=== PATIENT | female | born 1990 | race Caucasian/White ===

== ENCOUNTER 2020-02-28 08:23 | Emergency (ER) | payer MEDICAID ==
--- NOTE | 2020-02-28 08:49 | EDM.PDOC ---
ED HPI GENERAL MEDICAL PROBLEM - General Chief Complaint: Eye Problems Stated Complaint: L EYE INJURY Time Seen by Provider: 02/28/20 08:47 Source of Information: Reports: RN Notes Reviewed, Other (home health aide caregiver) - History of Present Illness INITIAL COMMENTS - FREE TEXT/NARRATIVE: 29 yr old female with onset of L eye irritation yesterday afternoon. That continues today. There has been a lot of tearing but no crusting or mattering. L upper eyelid is very slightly swollen. No fever, cough or other unusual sx. she is special needs, [place] patient. Patient does not verbalize. Information recieved is from [facility] caregiver. - Related Data Allergies Allergy/AdvReac Type Severity Reaction Status Date / Time Sulfa (Sulfonamide Allergy Rash Verified 02/28/20 08:51 Antibiotics) Home Meds: Home Meds Baclofen 30 mg PO BID 07/05/18 [History] Baclofen 40 mg PO BEDTIME 07/05/18 [History] Cholecalciferol (Vitamin D3) [Vitamin D3] 1,000 unit PO DAILY 07/05/18 [History] Cyanocobalamin (Vitamin B12) [Vitamin B12] 1,000 mcg PO DAILY 07/05/18 [History] Divalproex Sodium 1 tab PO 0800 07/05/18 [History] Divalproex Sodium 2 tab PO 1400 07/05/18 [History] Folic Acid 0.8 mg PO 1400 07/05/18 [History] Gabapentin [Neurontin] 2 tab PO BEDTIME 07/05/18 [History] Ibuprofen 200 mg PO ASDIRECTED PRN 07/05/18 [History] Juice Plus (Fruit) 4 tab PO QPM 07/05/18 [History] Juice Plus (Garden Blend) 4 tab PO DAILY 07/05/18 [History] L.acidoph,Paracasei, B.lactis [Probiotic] 1 each PO 1800 07/05/18 [History] Levofloxacin [Levaquin] 500 mg PO Q24H #9 tablet 07/05/18 [Rx] [place] Juice Plus 2 cap PO DAILY 07/05/18 [History] Power Pudding 1 tbsp PO DAILY 07/05/18 [History] l-Norgest/E.estradiol-E.estrad [Camrese 0.15-0.03-0.01 MG] 1 each PO ASDIRECTED 07/05/18 [History] polyethylene glycoL 3350 [MiraLAX] 3 tsp PO DAILY 07/05/18 [History] Past Medical History Other Gastrointestinal History: incontinence Genitourinary History: Reports: Urinary Incontinence, UTI, Recurrent 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 She has had previous rodding of her entire spine due to his severe scoliosis. Neurological History: Reports: Cerebral Palsy Social & Family History - Caffeine Use Caffeine Use: Reports: None - Living Situation & Occupation Living situation: Reports: Single Occupation: Disabled ED ROS GENERAL - Review of Systems Review Of Systems: Unable To Obtain Reason Not Obtained: pt is nonverbal ED EXAM GENERAL W FULL EYE - Physical Exam Exam: See Below Exam Limited By: Other (Pt nonverbal, not able to cooperate completely with exam) General Appearance: Mild Distress Eye Exam: Bilateral Eye: PERRL Eyelids: Bilateral: Other (L upper eyelid is very mildly swollen) Conjunctiva & Sclera: Left: Injected (mild) Cornea Exam: Bilateral: Other (no visible abrasion, no ulceration, no foreign body seen) Head: Atraumatic Neck: Supple Respiratory/Chest: No Respiratory Distress Neurological: Other (nonverbal, awake, nonpurposeful movement upper extrem. ) Skin Exam: Warm, Dry, Normal Color, No Rash Course - Vital Signs Last Recorded V/S: Last Vital Signs Temp 97.3 F 02/28/20 08:35 Pulse 111 H 02/28/20 08:35 Resp 16 02/28/20 08:35 BP 136/83 02/28/20 08:35 Pulse Ox 100 02/28/20 08:35 - Re-Assessments/Exams Free Text/Narrative Re-Assessment/Exam: 02/28/20 09:16 Pt has presumed abrasion L cornea, I a was able to get a decent look at her c ornea, no deep abrasion visible. She has scratched her eye before and has presumed abrasion with secondary inflamation. No ulceration or foreign body visible. Discharge instr. as documented. Departure - Departure Time of Disposition: 09:06 Disposition: Home, Self-Care 01 Condition: Fair Clinical Impression: Corneal abrasion Qualifiers: Encounter type: initial encounter Laterality: left Qualified Code(s): S05.02XA - Injury of conjunctiva and corneal abrasion without foreign body, left eye, initial encounter - Discharge Information Instructions: Corneal Abrasion Referrals: Rajiv Henderson MD [Primary Care Provider] - Forms: ED Department Discharge Additional Instructions: motrin as previously prescribed if needed for discomfort. Tylenol may given in between doses of motrin 500 mg up to 3 times daily for further pain relief if needed. Cipro Opthalmic, 2 drops L eye 3 times daily for 5 days Sepsis Event Note (ED) - Evaluation Sepsis Screening Result: No Definite Risk - Focused Exam Vital Signs: Vital Signs Temp Pulse Resp BP Pulse Ox 02/28/20 08:35 97.3 F 111 H 16 136/83 100
== END 2020-02-28 09:12 | disposition home or self-care (01) ==
LOC: JD.ED 08:23
DX: S05.02XA Injury of conjunctiva and corneal abrasion without foreign body, left eye, initial encounter (principal); Z88.2 Allergy status to sulfonamides; Z79.899 Other long term (current) drug therapy; Z87.442 Personal history of urinary calculi; X58.XXXA Exposure to other specified factors, initial encounter
CPT/HCPCS: 99282; 99283

== ENCOUNTER 2020-03-10 13:27 | Emergency (ER) | payer MEDICAID ==
[2020-03-10] MEDS ORDERED: Acetaminophen 325 MG Tab PO ONE (14:10)
--- NOTE | 2020-03-10 14:12 | EDM.PDOC ---
ED HPI GENERAL MEDICAL PROBLEM - General Chief Complaint: Respiratory Problem Stated Complaint: COUGH/EXPOSURE TO POSITIVE COVID PT Time Seen by Provider: 03/10/20 13:52 Source of Information: Reports: Provider History Limitations: Reports: Other (And is severely disabled from cerebral palsy and is nonverbal. She rises [id number] with her head neck on the bed.) - History of Present Illness INITIAL COMMENTS - FREE TEXT/NARRATIVE: 29-year-old female who has cerebral palsy and is nonverbal presents [place] the ED [place] [facility]. The care provider indicates that a [place] person [place] was diagnosed with COVID-19 positivity last evening through our hospital. Apparently 1 of the staff members there came down with COVID-19 as well recently. She spiked a temperature last evening and has gurgly respirations not really improved with albuterol treatments. Suctioning has been done. She did eat fairly well today. At the time of my exam she is febrile. She is a full code. Onset: Sudden Onset Date: 03/09/20 Duration: Hour(s):, Getting Worse Location: Reports: Chest (Chest congested with productive sounding cough) Quality: Reports: Other (Productive sounding cough congested cough on auscultation) Severity: Moderate Improves with: Reports: None Worsens with: Reports: None Context: Reports: Sick Contact (See history of present illness patient in the [place] that she lives in who was diagnosed with COVID-19 positivity yesterday and apparently 1 of the coworkers at the [place] [facility] was positive a week ago.). Denies: Activity, Exercise, Lifting Associated Symptoms: Reports: Cough, cough w sputum, Fever/Chills. Denies: Chest Pain, Diaphoresis, Headaches, Loss of Appetite, Malaise, Nausea/Vomiting, Rash, Seizure, Shortness of Breath, Syncope, Weakness Treatments PEDIATRICS PHYSICIAN: Reports: Acetaminophen, Other (see below) (Butyryl via nebulizer treatments.) - Related Data Allergies Allergy/AdvReac Type Severity Reaction Status Date / Time Sulfa (Sulfonamide Allergy Severe Rash Verified 03/10/20 14:04 Antibiotics) Home Meds: Home Meds Baclofen 30 mg PO BID 07/05/18 [History] Baclofen 40 mg PO BEDTIME 07/05/18 [History] Cholecalciferol (Vitamin D3) [Vitamin D3] 1,000 unit PO DAILY 07/05/18 [History] Cyanocobalamin (Vitamin B12) [Vitamin B12] 1,000 mcg PO DAILY 07/05/18 [History] Divalproex Sodium 1 tab PO 0800 07/05/18 [History] Divalproex Sodium 2 tab PO 1400 07/05/18 [History] Folic Acid 0.8 mg PO 1400 07/05/18 [History] Gabapentin [Neurontin] 2 tab PO BEDTIME 07/05/18 [History] Ibuprofen 200 mg PO ASDIRECTED PRN 07/05/18 [History] Juice Plus (Fruit) 4 tab PO QPM 07/05/18 [History] Juice Plus (Garden Blend) 4 tab PO DAILY 07/05/18 [History] L.acidoph,Paracasei, B.lactis [Probiotic] 1 each PO 1800 07/05/18 [History] Levofloxacin [Levaquin] 500 mg PO Q24H #9 tablet 07/05/18 [Rx] [place] Juice Plus 2 cap PO DAILY 07/05/18 [History] Power Pudding 1 tbsp PO DAILY 07/05/18 [History] l-Norgest/E.estradiol-E.estrad [Camrese 0.15-0.03-0.01 MG] 1 each PO ASDIRECTED 07/05/18 [History] polyethylene glycoL 3350 [MiraLAX] 3 tsp PO DAILY 07/05/18 [History] Past Medical History Cardiovascular History: Reports: Other (See Below) Other Cardiovascular History: heart surgery as toddler. Respiratory History: Reports: Pneumonia, Recurrent Other Gastrointestinal History: incontinence Genitourinary History: Reports: Urinary Incontinence, UTI, Recurrent Other LANDSCAPE ENGINEER History: correction control Other Musculoskeletal History: has cerebral palsy with contractures severe contractures of her hands wrists elbows knees and ankles. She has had previous rodding of her entire spine due to his severe scoliosis. Neurological History: Reports: Cerebral Palsy Social & Family History - Caffeine Use Caffeine Use: Reports: None - Living Situation & Occupation Living situation: Reports: Single Occupation: Disabled (Lives in [place] [facility] [place] setting with I believe 5 other people) ED ROS GENERAL - Review of Systems Review Of Systems: See Below Constitutional: Reports: Fever, Decreased Appetite. Denies: Weight Loss HEENT: Reports: No Symptoms Respiratory: Reports: Cough. Denies: Sputum, Hemoptysis (Adductive sounding cough) Cardiovascular: Reports: No Symptoms Endocrine: Reports: No Symptoms GI/Abdominal: Reports: Constipation (She is on a constipation treatment program every third day and had 3 good bowel movements with treatment yesterday.), Other (She eats normally but has to be fed of course.) : Reports: Incontinence Musculoskeletal: Reports: Other (Has cerebral palsy with flexion contractures at both wrists fingers elbows shoulders knees and ankles.) Skin: Reports: No Symptoms Neurological: Reports: Other (She is unable to walk and is nonverbal due to cerebral palsy. She is bedridden or in a wheelchair) Psychiatric: Reports: Hallucinations Hematologic/Lymphatic: Reports: No Symptoms Immunologic: Reports: No Symptoms ED EXAM, GENERAL - Physical Exam Exam: See Below Exam Limited By: No Limitations General Appearance: Alert, WD/WN, Moderate Distress, Other (Signs are not yet posted on her chart.) Eye Exam: Bilateral Eye: Normal Inspection Ears: Normal TMs Throat/Mouth: Normal Inspection, Normal Lips, Normal Teeth, Normal Oropharynx, Other (Tongue sounds moist) Head: Atraumatic, Normocephalic Neck: Normal Inspection, Supple, Non-Tender, Full Range of Motion. No: Lymphadenopathy (L), Lymphadenopathy (R) Respiratory/Chest: No Respiratory Distress, Lungs Clear, No Accessory Muscle Use, Respiratory Distress (Moderately tachypneic 24/min. O2 sats are 93% on room air.), Rhonchi (Throughout both anterior lung [place].). No: Wheezing Cardiovascular: Normal Peripheral Pulses, No Edema, No Gallop, No Murmur, No Rub, Tachycardia (Heart rate was 101 and sinus. BP 103/70) Peripheral Pulses: 2+: Posterior Tibial (L), Posterior Tibial (R), Dorsalis Pedis (L), Dorsalis Pedis (R), 3+: Carotid (L), Carotid (R) GI/Abdominal: Normal Bowel Sounds, Soft, No Organomegaly, Distended (Diffusely hyperactive bowel sounds. [place] distended tympanitic to percussion compel with aerophagia.), Abnormal Bowel Sounds Extremities: Normal Range of Motion, Non-Tender, No Pedal Edema, Normal Capillary Refill, Other (She has flexion contractures of hands wrists elbows shoulders knees and hips.) Neurological: Other (She is unable to obey commands. She rise back and forth with her head from side to side on the bed.) Psychiatric: Anxious, Other Skin Exam: Warm (Agitated.), Dry, Intact, Normal Color, No Rash EKG INTERPRETATION EKG Date: 03/10/20 Time: 15:23 Rhythm: Other Rate (Beats/Min): 112 [place]: Normal P-Wave: Present (First-degree AV block) QRS: Other (Early R wave transition V2 to V4 consider right ventricular hypertrophy versus septal hypertrophy pattern.) ST-T: Other (Diffuse nonspecific repolarization abnormalities noted particularly in V4 to V6. Spelt related to left ventricular appear to be with strain.) QT: Normal EKG Interpretation Comments: Abnormal ECG Course - Vital Signs Last Recorded V/S: Last Vital Signs Temp 37.3 C 03/10/20 16:25 Pulse 120 H 03/10/20 16:25 Resp 20 03/10/20 16:25 BP 157/105 H 03/10/20 16:25 Pulse Ox 96 03/10/20 16:25 - Orders/Labs/Meds Orders: Active Orders 24 hr Category Date Time Status EKG Documentation Completion [RC] STAT Care 03/10/20 14:07 Active Abdomen 1V Flat [CR] Stat Exams 03/10/20 14:22 Taken Chest 1V Frontal [CR] Stat Exams 03/10/20 14:07 Taken CULTURE BLOOD [BC] Stat Lab 03/10/20 14:35 Received CULTURE BLOOD [BC] Stat Lab 03/10/20 14:45 Received MAGNESIUM [CHEM] AM Lab 03/11/20 05:11 Ordered MAGNESIUM [CHEM] AM Lab 03/12/20 05:11 Ordered MAGNESIUM [CHEM] AM Lab 03/13/20 05:11 Ordered Dextrose 5%-0.9% NaCl [Dextrose 5%-Normal Saline] 1,000 Med 03/10/20 14:30 Active ml IV ASDIRECTED Blood Culture x2 Reflex Set [OM.PC] Stat Oth 03/10/20 14:09 Ordered Medication Orders Dextrose/Sodium Chloride (Dextrose 5%-Normal Saline) 1,000 mls @ 100 mls/hr IV ASDIRECTED JOVANI Last Admin: 03/10/20 16:24 Dose: 100 mls/hr Documented by: PRICILLA Labs: Laboratory Tests 08/15/20 08/15/20 08/15/20 Range/Units 14:45 14:45 14:45 WBC 5.60 (3.98-10.04) K/mm3 RBC 5.78 H (3.98-5.22) M/mm3 Hgb 16.9 H D (11.2-15.7) gm/dl Hct 50.1 H (34.1-44.9) % MCV 86.7 (79.4-94.8) fl MCH 29.2 (25.6-32.2) pg MCHC 33.7 (32.2-35.5) g/dl RDW Std Deviation 42.2 (36.4-46.3) fL Plt Count 130 L D (182-369) K/mm3 MPV 10.3 (9.4-12.3) fl Neutrophils % (Manual) 44 (40-60) % Band Neutrophils % 0 (0-10) % Lymphocytes % (Manual) 53 H (20-40) % Atypical Lymphs % 0 % Monocytes % (Manual) 3 (2-10) % Eosinophils % (Manual) 0 L (0.7-5.8) % Basophils % (Manual) 0 L (0.1-1.2) Platelet Estimate Adequate Plt Morphology Comment Normal RBC Morph Comment Normal D-Dimer, Quantitative (0.19-0.50) mg/L Sodium 140 (136-145) mEq/L Potassium 3.9 (3.5-5.1) mEq/L Chloride 104 (98-107) mEq/L Carbon Dioxide 28 (21-32) mEq/L Anion Gap 11.9 (5-15) BUN 13 (7-18) mg/dL Creatinine 0.5 L (0.55-1.02) mg/dL Est Cr Clr Drug Dosing 105.06 mL/min Estimated GFR (MDRD) > 60 (>60) mL/min BUN/Creatinine Ratio 26.0 H (14-18) Glucose 98 (74-106) mg/dL Lactic Acid (0.4-2.0) mmol/L Calcium 9.1 (8.5-10.1) mg/dL Ferritin (8-252) ng/ml Total Bilirubin 0.3 (0.2-1.0) mg/dL AST 24 (15-37) U/L ALT 26 (14-59) U/L Alkaline Phosphatase 97 (46-116) U/L Lactate Dehydrogenase 170 (81-234) U/L Troponin I < 0.017 (0.00-0.056) ng/mL C-Reactive Protein 4.1 H* (<1.0) mg/dL NT-Pro-B Natriuret Pep 51 (0-125) pg/mL Total Protein 8.2 (6.4-8.2) g/dl Albumin 3.6 (3.4-5.0) g/dl Globulin 4.6 gm/dL Albumin/Globulin Ratio 0.8 L (1-2) Urine Color (Yellow) Urine Appearance (Clear) Urine pH (5.0-8.0) Ur Specific [place] (1.005-1.030) Urine Protein (Negative) Urine Glucose (UA) (Negative) Urine Ketones (Negative) Urine Occult Blood (Negative) Urine Nitrite (Negative) Urine Bilirubin (Negative) Urine Urobilinogen (0.2-1.0) Ur Leukocyte Esterase (Negative) Urine RBC (0-5) /hpf Urine WBC (0-5) /hpf Ur Squamous Epith Cells (0-5) /hpf Amorphous Sediment (NOT SEEN) /hpf Urine Bacteria (FEW) /hpf Urine Mucus (FEW) /hpf COVID-19 (BEVERLY) (NEGATIVE) 03/10/20 03/10/20 03/10/20 Range/Units 14:45 14:45 14:45 WBC (3.98-10.04) K/mm3 RBC (3.98-5.22) M/mm3 Hgb (11.2-15.7) gm/dl Hct (34.1-44.9) % MCV (79.4-94.8) fl MCH (25.6-32.2) pg MCHC (32.2-35.5) g/dl RDW Std Deviation (36.4-46.3) fL Plt Count (182-369) K/mm3 MPV (9.4-12.3) fl Neutrophils % (Manual) (40-60) % Band Neutrophils % (0-10) % Lymphocytes % (Manual) (20-40) % Atypical Lymphs % % Monocytes % (Manual) (2-10) % Eosinophils % (Manual) (0.7-5.8) % Basophils % (Manual) (0.1-1.2) Platelet Estimate Plt Morphology Comment RBC Morph Comment D-Dimer, Quantitative 0.38 (0.19-0.50) mg/L Sodium (136-145) mEq/L Potassium (3.5-5.1) mEq/L Chloride (98-107) mEq/L Carbon Dioxide (21-32) mEq/L Anion Gap (5-15) BUN (7-18) mg/dL Creatinine (0.55-1.02) mg/dL Est Cr Clr Drug Dosing mL/min Estimated GFR (MDRD) (>60) mL/min BUN/Creatinine Ratio (14-18) Glucose (74-106) mg/dL Lactic Acid 1.6 (0.4-2.0) mmol/L Calcium (8.5-10.1) mg/dL Ferritin 48 (8-252) ng/ml Total Bilirubin (0.2-1.0) mg/dL AST (15-37) U/L ALT (14-59) U/L Alkaline Phosphatase (46-116) U/L Lactate Dehydrogenase (81-234) U/L Troponin I (0.00-0.056) ng/mL C-Reactive Protein (<1.0) mg/dL NT-Pro-B Natriuret Pep (0-125) pg/mL Total Protein (6.4-8.2) g/dl Albumin (3.4-5.0) g/dl Globulin gm/dL Albumin/Globulin Ratio (1-2) Urine Color (Yellow) Urine Appearance (Clear) Urine pH (5.0-8.0) Ur Specific [place] (1.005-1.030) Urine Protein (Negative) Urine Glucose (UA) (Negative) Urine Ketones (Negative) Urine Occult Blood (Negative) Urine Nitrite (Negative) Urine Bilirubin (Negative) Urine Urobilinogen (0.2-1.0) Ur Leukocyte Esterase (Negative) Urine RBC (0-5) /hpf Urine WBC (0-5) /hpf Ur Squamous Epith Cells (0-5) /hpf Amorphous Sediment (NOT SEEN) /hpf Urine Bacteria (FEW) /hpf Urine Mucus (FEW) /hpf COVID-19 (BEVERLY) (NEGATIVE) 03/10/20 03/10/20 Range/Units 15:55 16:11 WBC (3.98-10.04) K/mm3 RBC (3.98-5.22) M/mm3 Hgb (11.2-15.7) gm/dl Hct (34.1-44.9) % MCV (79.4-94.8) fl MCH (25.6-32.2) pg MCHC (32.2-35.5) g/dl RDW Std Deviation (36.4-46.3) fL Plt Count (182-369) K/mm3 MPV (9.4-12.3) fl Neutrophils % (Manual) (40-60) % Band Neutrophils % (0-10) % Lymphocytes % (Manual) (20-40) % Atypical Lymphs % % Monocytes % (Manual) (2-10) % Eosinophils % (Manual) (0.7-5.8) % Basophils % (Manual) (0.1-1.2) Platelet Estimate Plt Morphology Comment RBC Morph Comment D-Dimer, Quantitative (0.19-0.50) mg/L Sodium (136-145) mEq/L Potassium (3.5-5.1) mEq/L Chloride (98-107) mEq/L Carbon Dioxide (21-32) mEq/L Anion Gap (5-15) BUN (7-18) mg/dL Creatinine (0.55-1.02) mg/dL Est Cr Clr Drug Dosing mL/min Estimated GFR (MDRD) (>60) mL/min BUN/Creatinine Ratio (14-18) Glucose (74-106) mg/dL Lactic Acid (0.4-2.0) mmol/L Calcium (8.5-10.1) mg/dL Ferritin (8-252) ng/ml Total Bilirubin (0.2-1.0) mg/dL AST (15-37) U/L ALT (14-59) U/L Alkaline Phosphatase (46-116) U/L Lactate Dehydrogenase (81-234) U/L Troponin I (0.00-0.056) ng/mL C-Reactive Protein (<1.0) mg/dL NT-Pro-B Natriuret Pep (0-125) pg/mL Total Protein (6.4-8.2) g/dl Albumin (3.4-5.0) g/dl Globulin gm/dL Albumin/Globulin Ratio (1-2) Urine Color Yellow (Yellow) Urine Appearance Cloudy H (Clear) Urine pH 7.5 (5.0-8.0) Ur Specific [place] 1.020 (1.005-1.030) Urine Protein Trace H (Negative) Urine Glucose (UA) Negative (Negative) Urine Ketones 2+ H (Negative) Urine Occult Blood Trace-intact H (Negative) Urine Nitrite Negative (Negative) Urine Bilirubin Negative (Negative) Urine Urobilinogen 2.0 H (0.2-1.0) Ur Leukocyte Esterase Negative (Negative) Urine RBC 5-10 H (0-5) /hpf Urine WBC 0-5 (0-5) /hpf Ur Squamous Epith Cells 0-5 (0-5) /hpf Amorphous Sediment Many H (NOT SEEN) /hpf Urine Bacteria Few (FEW) /hpf Urine Mucus Not seen (FEW) /hpf COVID-19 (BEEVRLY) Positive H (NEGATIVE) Meds: Medications Generic Name Dose Route Start Last Admin Trade Name Freq PRN Reason Stop Dose Admin Dextrose/Sodium Chloride 1,000 mls @ 100 mls/hr 03/10/20 14:30 03/10/20 16:24 Dextrose 5%-Normal Saline IV 100 mls/hr ASDIRECTED JOVANI Administration Discontinued Medications Generic Name Dose Route Start Last Admin Trade Name Freq PRN Reason Stop Dose Admin Acetaminophen 650 mg 03/10/20 14:10 03/10/20 16:10 Tylenol PO 03/10/20 14:11 650 mg NOW ONE Administration - Radiology Interpretation Free Text/Narrative:: 29-year-old female with cerebral palsy and whom is nonverbal and currently living in [place] [facility] here in [place] presents to the ED for evaluation of fever and chest congestion that started yesterday. She has been exposed to another person in the [place] [facility] [place] she lives in who proved to be COVID positive night team last night. Also apparently 1 of the staff members was recently sick with COVID-19 diagnosed last week Thursday. On examination ears ,nose and throat, show no active infection .Chest is very congested throughout and O2 sats are 93% to 91% on room air. He has a distended abdomen which is tympanitic to percussion combined with aerophagia. Plan she will have a chest x-ray and x-ray of her abdomen. An IV will be established for lab work assessment and I will give her small quantities of IV fluid D5 normal saline at 100 mils per hour. COVID of screen of course will be done. Strongly suspect it will be positive - Re-Assessments/Exams Free Text/Narrative Re-Assessment/Exam: 03/10/20 15:25 chest x-ray done portably reveals extensive rodding of the thoracic spine for scoliosis. Visualized portions the lungs appear to be clear with perhaps very minimal vascular congestion pattern. Cardiac silhouette is normal. The x-ray is unchanged from June 2018. 03/10/20 16:03 White count is normal at 5.60. Differential is 44% neutrophils no bands cells and 53% lymphocytes or right shift. Hemoglobin is 16.9 with hematocrit of 50.1. This indicates some degree of hemoconcentration. Platelet count is on the low side at 130,000. D-dimer is normal at 0.38. Sodium 140 with a potassium of 3.9. Chloride 104 with a bicarb of 28. Anion gap is 11.9. BUN is 13 with a creatinine of 0.5. GFR is greater than 60. Glucose is 98 lactic acid is 1.6. Calcium is 9.1 serum ferritin is 48 bilirubin 0.3 and remainder liver function studies are normal. LDH is normal at 170. Troponin I is less than 0.017. C-reactive protein is 4.1. BNP is 51. Total protein is 8.2 with an albumin fraction of 3.6. Covid 19 study is pending. 03/10/20 16:45 Urinalysis obtained by catheterization shows 2+ ketones ,negative leukocyte esterase and only 5-10 red blood cells per high-power field. COVID- 19 is positive. 03/10/20 17:00 : Case discussed with the group billing coordinator that is with the patient. The patient has not been able to keep on a mask at all due to her cerebral palsy and constant movement of her head and neck. I did discuss the diagnosis with the mother Natacha Velazquez and indicated the very serious nature of the disease with a high probability that she may succumb to this illness. She has difficulty clearing her secretions from her chest at the best of times although she does not usually require suctioning. She is code level 1 and mother wishes her to stay that way. Therefore I think the best chance that she has at survival is to be admitted to 1 of the hospitals in [place] where she can be admitted into a study protocol for medications to try and clear the COVID virus. I therefore spoke with Dr.Vasa de leon stat [facility] in [place] and he is excepted care. Her transfer to that institution will be delayed because our ambulances are out already and we will call [facility] ambulance to provide transport at this time. They estimated that they would be a good 70 to 80 minutes putting a team together before arrival here in [place]. 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 She is now having trouble clearing her secretions which is not her norm. She has an athetoid type of cerebral palsy where she moves from side to side and is unable to keep a mask in place. She proved to be COVID 19+ and due to her underlying health conditions she is at high risk of succumbing to this illness. Discussed the findings with the mother and she wished her to be a code level 1 and treated as aggressively as possible. She will therefore be sent to [facility] for admission to the COVID unit where they have ability to treat her with rhabdo severe and other alternative therapies. She will be sent to that institution per ground ambulance. Sepsis Event Note (ED) - Focused Exam Vital Signs: Vital Signs Temp Temp Pulse Resp BP Pulse Ox 03/10/20 16:25 37.3 C 120 H 20 157/105 H 96 03/10/20 16:10 37.3 C 03/10/20 14:12 37.1 C 126 H 28 H 158/139 H 93 L - My Orders Last 24 Hours: My Active Orders 03/10/20 14:07 EKG Documentation Completion [RC] STAT Chest 1V Frontal [CR] Stat 03/10/20 14:09 Blood Culture x2 Reflex Set [OM.PC] Stat 03/10/20 14:22 Abdomen 1V Flat [CR] Stat 03/10/20 14:30 Dextrose 5%-0.9% NaCl [Dextrose 5%-Normal Saline] 1,000 ml IV ASDIRECTED 03/10/20 14:35 CULTURE BLOOD [BC] Stat 03/10/20 14:45 CULTURE BLOOD [BC] Stat 03/11/20 05:11 MAGNESIUM [CHEM] AM 03/12/20 05:11 MAGNESIUM [CHEM] AM 03/13/20 05:11 MAGNESIUM [CHEM] AM - Assessment/Plan Last 24 Hours: My Active Orders 03/10/20 14:07 EKG Documentation Completion [RC] STAT Chest 1V Frontal [CR] Stat 03/10/20 14:09 Blood Culture x2 Reflex Set [OM.PC] Stat 03/10/20 14:22 Abdomen 1V Flat [CR] Stat 03/10/20 14:30 Dextrose 5%-0.9% NaCl [Dextrose 5%-Normal Saline] 1,000 ml IV ASDIRECTED 03/10/20 14:35 CULTURE BLOOD [BC] Stat 03/10/20 14:45 CULTURE BLOOD [BC] Stat 03/11/20 05:11 MAGNESIUM [CHEM] AM 03/12/20 05:11 MAGNESIUM [CHEM] AM 03/13/20 05:11 MAGNESIUM [CHEM] AM
[2020-03-10] MEDS ORDERED: Dextrose 5%-0.9% NaCl 1,000 ML IV SCH (14:30)
--- NOTE | 2020-03-11 13:21 | CR ---
Abdomen: Supine view of the abdomen was obtained. Comparison: No prior abdominal imaging is available. Diffuse gaseous dilatation of colon and small bowel is noted. No rectal gas is seen although stool is seen within the rectum. Deformity of the right hip is noted. Scoliosis fixation rods are present. No additional abnormality is appreciated. Impression: 1. Diffuse gaseous dilatation of small bowel and colon with lack of rectal gas although stool seen within the rectum. Findings presumably represent chronic diffuse ileus. 2. Other nonacute findings as noted above. Diagnostic code #3 This report was dictated in MDT
--- NOTE | 2020-03-11 13:29 | CR ---
Chest: Portable supine view of the chest was obtained. Comparison: Prior chest x-ray of 07/09/18. Diffuse gaseous dilatation of colon and small bowel is seen. Findings are similar to previous study. Scoliosis fixation rods are seen. Heart size and mediastinum are normal. Slight parenchymal density is noted within the right lung base could represent atelectasis or minimal area of pneumonia. Lungs otherwise are clear. Impression: 1. Diffuse gaseous dilatation of bowel which appears similar to prior chest x-ray. 2. Slight parenchymal density with left lung base either due to atelectasis or small area of pneumonia patient has correlating symptoms. 3. No other acute abnormality is seen. Diagnostic code #3 This report was dictated in MDT
== END 2020-03-10 19:25 ==
LOC: SUPCPDRO 13:27 → JD.ED 13:27
DX: U07.1 COVID-19 (principal); J40 Bronchitis, not specified as acute or chronic; R09.02 Hypoxemia; G80.3 Athetoid cerebral palsy; R44.3 Hallucinations, unspecified; K59.00 Constipation, unspecified; Z88.2 Allergy status to sulfonamides; Z79.899 Other long term (current) drug therapy
CPT/HCPCS: 36415; 71045; 74018; 80053; 81001; 82728; 83605; 83615; 83880; 84484; 85007; 85027; 85379; 86140; 87040; 87086; 87088; 87181; 87184; 87186; 87635; 93005; 96360; 96361; 99285; A9270; J7042; 93010; U0002

== ENCOUNTER 2022-11-22 10:45 | Emergency (ER) | payer MEDICAID | END 2022-11-22 13:36 | disposition home health service (06) | LOC: MERGE 10:45 → JD.ED 10:45 | DX: M79.671 Pain in right foot (principal); M25.562 Pain in left knee; M25.462 Effusion, left knee; Z86.16 Personal history of COVID-19; Z88.2 Allergy status to sulfonamides; Z79.899 Other long term (current) drug therapy | CPT/HCPCS: 93970; 93970-26; 99283 ==